=== PATIENT | female | born 1990 | race African-American/Black ===

== ENCOUNTER 2017-10-08 18:46 | Emergency (ER) | payer SELFPAY ==
[~2017-10-08] VITALS: Ht 172.7 cm; Wt 147.0 kg
[2017-10-08] MEDS ORDERED: KETOROLAC 30MG/ML VIAL IV STA (23:17)
[2017-10-08] MEDS ORDERED: FAMOTIDINE 20MG/2ML VIAL IV STA (23:17)
[2017-10-08] MEDS ORDERED: ONDANSETRON HCL 4MG/2ML VIAL IV STA (23:17)
[2017-10-08] MEDS ORDERED: SODIUM CHLORIDE 0.9% 1,000 ML IV ONE (23:17)
[2017-10-08 23:57] LABS: BASOPHILS % 0.5 % (0.0-2.0); EOSINOPHILS % 0.1 % (0.0-5.0); HEMATOCRIT. 44.7 % (36.0-48.0); LYMPHOCYTES % 10.4 % (20.0-50.0); MEAN CORPUSCULAR HEMOGLOBIN 24.1 pg (28.0-32.0); MEAN CORPUSCULAR VOLUME 71.8 fL (81.0-99.0); MONOCYTES % 2.9 % (2.0-8.0); NEUTROPHILS % 86.1 % (40.0-76.0); RED BLOOD CELL COUNT 6.22 mill/uL (4.2-5.4); RED CELL DISTRIBUTION WIDTH 15.8 % (11.6-14.6)
[2017-10-09 00:03] LABS: CHLORIDE 99 mEq/L (98-107)
[2017-10-09 00:10] LABS: CLARITY URINE TURBID (CLEAR); COLOR URINE DARK YELLOW (YELLOW); KETONES URINE TRACE (NEGATIVE); LEUKOCYTE ESTERASE URINE 1+ (NEGATIVE); NITRITE URINE POSITIVE (NEGATIVE); OCCULT BLOOD URINE 1+ (NEGATIVE); PROTEIN URINE 3+ (NEGATIVE)
[2017-10-09 00:45] LABS: MEAN PLATELET VOLUME 10.9 fl (7.4-10.4)
[2017-10-09 00:46] LABS: PLATELET 209 x1000/uL (130-400)
[2017-10-09 07:07] VITALS: BP 118/62
== END 2017-10-09 07:08 | disposition left against medical advice (07) ==
LOC: ER 20:32
DX: R10.9 Unspecified abdominal pain (principal)
CPT/HCPCS: 36415; 76705; 80053; 81003; 81025; 83690; 85025; 96361; 96374; 96375; 99285; J1885; J2405; J3490; J7030